=== PATIENT | male | born 1985 | race Caucasian/White ===

== ENCOUNTER 2016-12-11 09:04 | Emergency (ER) | payer OTHER ==
--- NOTE | ~2016-12-11 | ER ---
PATIENT'S NAME: HARSH ZEE [facility] AGE: 30 Y [address] ROOM: [place] [id number] LOCATION: [facility] ADMIT DATE: 12/11/2016 ER/Outpatient Report DISCHARGE DATE: 12/11/2016 FAMILY PHYSICIAN: PHYSICIAN, NO ATTENDING PHYSICIAN: Sharmila Connor Time of Arrival: 0904 hours. Time of Evaluation: 0919 hours. IDENTIFICATION: A 30-year-old male. CHIEF COMPLAINT: Left foot injury. HISTORY OF PRESENT ILLNESS: The patient is a 30-year-old male, who was working when some wet concrete that was about 9 feet above him came loose and fell, landing on him. He thinks maybe it was more aboard, that got landed on his left foot, but then he also slipped and fell backward and has complaints of pain in his right knee, left foot, right shoulder, and right low back. He did not hit his head. No loss of consciousness and no other injuries. ALLERGIES: NO KNOWN DRUG ALLERGIES. MEDICATIONS: No current medications. MEDICAL PROBLEMS: Denies. No prior surgeries or hospitalizations. SOCIAL HISTORY: The patient lives here in [place]. Works for [employer]. Tobacco use, half can of chewing tobacco per day. Alcohol use and drug use, denies. REVIEW OF SYSTEMS: All systems reviewed and negative other than what is noted in the HPI. PHYSICAL EXAMINATION: VITAL SIGNS: Height 5 feet 11 inches, weight 78.1 kg, blood pressure 126/78, pulse 70, respirations 16, temperature 98, saturations 99% on room air. GENERAL: A 30-year-old male, in [id number] distress. HEENT: Head: Normocephalic, atraumatic. Ears: TMs translucent both ears. Eyes: Pupils equal and reactive to light and accommodation. Extraocular PATIENT'S NAME: HARSH ZEE [facility] AGE: 30 Y [address] ROOM: [place] [address] LOCATION: [facility] ADMIT DATE: 12/11/2016 ER/Outpatient Report DISCHARGE DATE: 12/11/2016 FAMILY PHYSICIAN: PHYSICIAN, NO ATTENDING PHYSICIAN: Sharmila Connor movements intact. Nose: Mucosa pink. No lesions or drainage. Mouth: No lesions. Pharynx benign. NECK: Supple. No lymphadenopathy. No nuchal rigidity. No tenderness to palpation of the cervical spine. LUNGS: Clear to auscultation. Breath sounds are equal. No rhonchi, wheezes, or rales. HEART: Regular rate and rhythm. No murmur, rub, or gallop. ABDOMEN: Bowel sounds present. Soft, nondistended. No hepatosplenomegaly. No palpable masses. Nontender. SKIN: [place], warm, and dry. The patient has an abrasion over his right flank. A little bit of erythema and a small abrasion on his right third finger. MUSCULOSKELETAL: He is tender to palpation in his lumbar spine. No palpable deformities. No tenderness to palpation of his thoracic spine. Upper extremities: Left upper extremity; full range of motion, no deformities, and nontender, neurovascularly intact. Right upper extremity; neurovascularly intact, full range of motion, but pain to palpation of his right shoulder, pain with abduction of his right shoulder, no palpable deformities. Left lower extremity; neurovascularly intact, decreased range of motion secondary to pain; he is tender to palpation of the dorsum of his foot, no significant swelling; there is minimal erythema. Right knee; minimal prepatellar swelling, no obvious deformities; he is tender to palpation, no palpable deformities. He is neurovascularly intact. He came in hopping on his right leg because of the pain in his left foot, now says that his right knee is hurting more than anything. X-RAYS: X-ray of his right shoulder, negative for acute fracture or dislocation. Pending Radiology over-read. X-ray of his right knee, no fracture or dislocation, pending Radiology over-read. X-ray of his left foot, negative for fracture or dislocation. X-ray of his pelvis and right hip, negative for fracture or dislocation, pending Radiology over-read. CT scan of his lumbar spine, small L5-S1 left posterior protrusion but no acute findings. EMERGENCY DEPARTMENT COURSE: The patient was given one [place] here for pain. IMPRESSION: 1. Right knee sprain. 2. Left foot injury. 3. Right low back pain. 4. Right shoulder pain. 5. Abrasions. PLAN: Tetanus is boosted. Tylenol or Advil for pain. Ice as needed. Knee PATIENT'S NAME: HARSH ZEE [facility] AGE: 30 Y [address] ROOM: [place], [place] [address] LOCATION: [facility] ADMIT DATE: 12/11/2016 ER/Outpatient Report DISCHARGE DATE: 12/11/2016 FAMILY PHYSICIAN: PHYSICIAN, NO ATTENDING PHYSICIAN: Sharmila Connor immobilizer, right knee. Boot walker, left foot. Crutches and weight bear as tolerates. No work until recheck in 2 to 3 days. Follow up with primary care physician in 2 to 3 days. Follow up sooner if any problems or concerns. The patient understands and agrees, and all questions have been answered. SHARMILA CONNOR MD CAR/ld /[id number] d: 12/11/16 1950 t: 12/12/16 0717, OUTPATIENT REPORT
== END 2016-12-11 10:51 | disposition disaster alternative care site (69) ==
LOC: GACC 09:04
PROC: 2W3QX1Z Immobilization of Right Lower Leg using Splint (ICD-10-PCS; principal; 2016-12-11)
DX: S33.39XA Dislocation of other parts of lumbar spine and pelvis, initial encounter (principal); S99.921A Unspecified injury of right foot, initial encounter; S83.91XA Sprain of unspecified site of right knee, initial encounter; F17.220 Nicotine dependence, chewing tobacco, uncomplicated; S60.412A Abrasion of right middle finger, initial encounter; M25.511 Pain in right shoulder; W17.89XA Other fall from one level to another, initial encounter; Y99.0 Civilian activity done for income or pay; Z23 Encounter for immunization